=== PATIENT | female | born 1970 | race Hispanic/Latino ===

== ENCOUNTER → 2017-09-05 | Outpatient (CLI) | payer BC ==
--- NOTE | 2017-09-06 11:02 | MAM ---
EXAM DESCRIPTION: 3D Screening BILATERAL CLINICAL HISTORY: 46 yearsFemaleSCREENING' no complaints. Sister with breast cancer. Premenopausal.. COMPARISON: 2-D digital screening bilateral studies 08/16/2016 and 09/21/2013.. Report from prior examination also reviewed. TECHNIQUE: Bilateral CC and MLO projection full-field images, 3-D tomosynthesis digital mammographic technique. Also bilateral synthesized CC/ MLO full-field images. CAD not utilized. FINDINGS: The breast parenchymal density pattern is: Heterogeneously dense breast tissue, which may obscure small masses. No skin thickening or nipple retraction bilateral axillary lymph nodes. Again noted is focal asymmetry with minimally spiculated margins, best seen on the MLO view at approximately 1200 clock position, approximately 9 cm from the nipple superimposed over the anterior pectoral margin. No associated microcalcifications. Similar density to fibroglandular tissues. No focal, stellate mass or density, focal asymmetry , and no suspicious microcalcifications left breast. IMPRESSION: BI-RADS CATEGORY: 0 - INCOMPLETE- Need additional imaging evaluation. FOLLOW-UP: Recall for additional imaging: Targeted ultrasound of the region of interest in the posterior superior right breast. Written communication concerning the IMPRESSION and Follow-up, will be mailed to the patient and referring health care provider. Electronically signed by: Chris Epperson MD 09/06/2017 11:01 AM CDT
== END | disposition home or self-care (01) ==
LOC: MAMMO 16:56
PROVIDERS: ATTEND Obstetrics & Gynecology
DX: Z12.31 Encounter for screening mammogram for malignant neoplasm of breast (principal)
CPT/HCPCS: 77063; G0202

== ENCOUNTER → 2017-09-14 | Outpatient (CLI) | payer BC ==
--- NOTE | 2017-09-15 16:09 | US ---
EXAM DESCRIPTION: Breast,Right: Ultrasound CLINICAL HISTORY: 46 yearsFemaleABNORMAL MAMMO COMPARISON: Digital 3-D tomosynthesis bilateral screening breast 09/05/2017. TECHNIQUE: Transcutaneous scanning of the right breast utilizing two-dimensional and Doppler modes. Scanning performed by the process plant operator and Dr. Epperson. FINDINGS: Scanning of the right breast at the 1200 clock position 9 cm in the nipple. Well-circumscribed hypoechoic solid object with central echogenicity. Dimensions are 6.6 x 4.5 x 3.0. Nonvascular. No other discrete solid masses. No cysts. No parenchymal edema or skin thickening. No calcifications. IMPRESSION: BI-RADS CATEGORY: 2 - BENIGN FINDINGS. FOLLOW UP: Routine digital bilateral mammographic screening, one year interval from August 2017. Written communication explaining the IMPRESSION and follow-up, will be mailed to the patient and referring health care provider. According to the [employer], yearly mammograms are recommended starting at age 40 and continuing as long as a woman is in good health. Any breast change noted on a breast self-exam should be reported promptly to the patient's healthcare provider. Breast MRI is recommended for women with an approximately 20-25% or greater lifetime risk of breast cancer, including women with a strong family history of breast or ovarian cancer and women who have been treated for Hodgkin's disease. A negative mammographic report should not delay tissue diagnosis in patients with significant clinical history or physical findings. Extremely dense breast tissue limits the sensitivity of digital mammography. The findings and the follow-up plan were reviewed in person with the patient after the examination. Electronically signed by: Chris Epperson MD 09/15/2017 4:07 PM CDT
== END ==
LOC: MAMMO 15:28
PROVIDERS: ATTEND Nurse Practitioner Family
DX: R92.8 Other abnormal and inconclusive findings on diagnostic imaging of breast (principal)

== ENCOUNTER → 2017-09-26 | Outpatient (CLI) | payer BC ==
--- NOTE | 2017-09-26 17:20 | CT ---
EXAM: Thoracic Spine CT CLINICAL INDICATION: Myasthenia gravis with acute exacerbation COMPARISON: None. TECHNIQUE: CT of the thoracic spine was performed without contrast. This exam was performed according to our departmental dose optimization program which includes use of automated exposure control, adjustment of the mA and/or kV according to patient size and/or use of iterative reconstruction technique. FINDINGS: There is normal alignment of the thoracic spine without fracture or subluxation. The facets are normal in alignment bilaterally. The posterior elements including the spinous processes are intact. Morphology and attenuation of the vertebral bodies and intervertebral disc spaces is within normal limits. The pre-and paravertebral soft tissues are within normal limits. Extraspinal imaging is within normal limits. IMPRESSION: 1. Normal computerized axial tomography of the thoracic spine. Electronically signed by: Josh Dimas MD 09/26/2017 5:19 PM CDT
== END | disposition home or self-care (01) ==
LOC: CT 09:04
PROVIDERS: ATTEND Psychiatry & Neurology Neurology
DX: G70.01 Myasthenia gravis with (acute) exacerbation (principal)